=== PATIENT | female | born 1970 | race Caucasian/White ===

== ENCOUNTER 2016-07-28 13:44 | Emergency (ER) | payer MEDICAID ==
[2016-07-28] MEDS ORDERED: LORazepam 2 MG/ML SYRINGE IVP STA ×2 (14:12→14:18)
[2016-07-28] MEDS ORDERED: LORazepam 2 MG/ML SYRINGE ONE ×2 (14:17→14:21)
[2016-07-28] MEDS ORDERED: cloNIDine 0.1 MG TABLET PO STA (14:45)
[2016-07-28] MEDS ORDERED: cloNIDine 0.1 MG TABLET ONE (14:54)
[2016-07-28] MEDS ORDERED: NITROGLYCERIN SL 0.4 MG TABLET SL STA (16:06)
[2016-07-28] MEDS ORDERED: NITROGLYCERIN 2% PASTE TOP STA (16:06)
[2016-07-28] MEDS ORDERED: NITROGLYCERIN SL 0.4 MG TABLET SL ONE (16:07)
[2016-07-28] MEDS ORDERED: NITROGLYCERIN 2% PASTE TOP ONE (16:08)
== END 2016-07-28 18:01 | disposition home or self-care (01) ==
DX: F41.9 Anxiety disorder, unspecified (principal); I10 Essential (primary) hypertension; I15.8 Other secondary hypertension; E11.9 Type 2 diabetes mellitus without complications; Z79.82 Long term (current) use of aspirin; Z79.4 Long term (current) use of insulin
CPT/HCPCS: 36415; 80053; 83690; 93005; 93010; 96374; 99284; A9270; J2060